=== PATIENT | female | born 1960 | race African-American/Black ===

== ENCOUNTER 2021-11-30 14:27 | Emergency (ER) | payer OTHER ==
[~2021-11-30] VITALS: Ht 160 cm; Wt 65.3 kg
[~2021-11-30 14:27] MED LIST: ORPH100T PO; SYNTHROID100 MCG BC; TUSSI PRES-B L120 M1 PO; ZITHROMAX TRI-500 MG PO
[2021-11-30] MEDS ORDERED: METFORMIN HCL500 MG (14:56)
== END 2021-11-30 16:52 ==
LOC: ER 14:27
DX: M50.90 Cervical disc disorder, unspecified, unspecified cervical region (principal); E11.40 Type 2 diabetes mellitus with diabetic neuropathy, unspecified; F41.8 Other specified anxiety disorders; M50.30 Other cervical disc degeneration, unspecified cervical region; Z85.850 Personal history of malignant neoplasm of thyroid; Z79.84 Long term (current) use of oral hypoglycemic drugs

== ENCOUNTER 2023-05-27 11:24 | Emergency (ER) | payer OTHER ==
[~2023-05-27] VITALS: Ht 162.6 cm; Wt 64.9 kg
[~2023-05-27 11:24] MED LIST changes: +METFORMIN HCL500 MG
[2023-05-27] MEDS ORDERED: CRESTOR20 MG (12:54)
[2023-05-27] MEDS ORDERED: SINGULAIR 5MG5 MG (12:55)
[2023-05-27] MEDS ORDERED: MULTI VITAMIN1 EACH (12:56)
== END 2023-05-27 16:39 | disposition home or self-care (01) ==
LOC: ER 11:24
DX: M51.17 Intervertebral disc disorders with radiculopathy, lumbosacral region (principal); G62.89 Other specified polyneuropathies; M79.7 Fibromyalgia
CPT/HCPCS: 71110; 96372; 99284; J1885; J2360